=== PATIENT | female | born 1985 | race African-American/Black ===

== ENCOUNTER 2019-12-27 09:34 | Inpatient (IN) ==
[2019-12-27] MEDS ORDERED: ONDANSETRON 4 MG/2 ML VIAL IV PRN (10:03)
[2019-12-27] MEDS ORDERED: BUTORPHANOL 2 MG/ML VIAL IV PRN (10:03)
[2019-12-27] MEDS ORDERED: OXYTOCIN/LR 20 UNIT/1,000 ML BAG IV PRN (10:03)
[2019-12-27] MEDS ORDERED: BUTORPHANOL 1 MG/ML VIAL IV PRN (10:03)
[2019-12-27] MEDS ORDERED: FAMOTIDINE 20 MG/2 ML VIAL IV ONE (10:06)
[2019-12-27] MEDS ORDERED: ONDANSETRON 4 MG/2 ML VIAL IV ONE (10:06)
[2019-12-27] MEDS ORDERED: CITRIC ACID/SODIUM CITRATE 30 ML UDCUP PO ONE (10:06)
[2019-12-27] MEDS ORDERED: hydrOXYzine HCL 25 MG/1 ML VIAL IM PRN (10:06)
[2019-12-27] MEDS ORDERED: ePHEDrine 50 MG/ML VIAL IV PRN (10:06)
[2019-12-27] MEDS ORDERED: diphenhydrAMINE 50 MG/1 ML VIAL IV PRN ×2 (10:06)
[2019-12-27] MEDS ORDERED: PROMETHAZINE 25 MG/1 ML VIAL IM ONE (10:06)
[2019-12-27] MEDS ORDERED: NALOXONE 0.4 MG/ML VIAL IV PRN (10:06)
[2019-12-27] MEDS ORDERED: LACTATED RINGERS 1,000 ML IV ONE (10:06)
[2019-12-27 10:30] LABS: Basophils # 0.1 10*3/uL (0.0-0.2); Basophils % 0.3 % (0.0-0.8); Eosinophils # 0.1 10*3/uL (0.0-0.87); Eosinophils % 0.3 % (0.00-10.9); Hematocrit 29.8 VOL% (35.7-47.0); Hemoglobin 9.9 GM/DL (12.0-16.0); Immature Granulocytes % 1.9 %; Immature Granulocytes Absolute 0.29 #; Lymphocytes # 2.1 10*3/uL (1.4-4.0); Lymphocytes % 13.9 % (21.3-54.2); Mean Corpuscular HGB Conc 33.2 GM/DL (32-36); Mean Corpuscular Volume 84.9 FL (87-102); Mean Platelet Volume 9.1 FL (9.6-12.0); Monocytes % 6.7 % (1.7-12.7); NRBC # 0.04 10*3/uL; Neutrophils % 76.9 % (38.7-73.9); Platelet Count 650 T/CUMM (130-400); Red Blood Count 3.51 MC/CUMM (3.8-5.5); Red Cell Distribution Width 15.4 % (9.3-17.3); White Blood Count 15.2 T/CUMM (4-12)
[2019-12-27] MEDS ORDERED: LACTATED RINGERS 1,000 ML IV SCH (10:30)
[2019-12-27] MEDS ORDERED: fentaNYL 2 MCG/ROPIV 0.2% EPID 100 ML EPIDURAL SCH (10:30)
[2019-12-27] MEDS ORDERED: miSOPROStoL 200 MCG TABLET ONE ×2 (10:31→11:10)
[2019-12-27] MEDS ORDERED: CARBOPROST TROMETHAMINE 250 MCG/ML AMP IM ONE ×2 (10:32→11:11)
[2019-12-27] MEDS ORDERED: METHYLERGONOVINE 0.2 MG/1 ML AMP ONE ×2 (10:32→11:10)
[2019-12-27 10:57] LABS: Alanine Aminotransferase < 9 U/L (13-56); Albumin 2.1 G/DL (3.4-5.0); Alkaline Phosphatase 362 U/L (45-117); Aspartate Amino Transferase 23 U/L (0-37); Blood Urea Nitrogen 7 MG/DL (7-18); Calcium 9.4 MG/DL (8.5-10.1); Estimated Glom Filtration Rate 88 ML/MIN; Glucose 110 MG/DL (74-106); Osmolality,Calculated 262.5 MOS/KG (273-304); Total Protein 7.8 G/DL (6.4-8.3); Uric Acid 6.3 MG/DL (2.6-6.0)
[2019-12-27] MEDS ORDERED: OXYTOCIN/LR 0 UNIT/0 ML BAG IV ONE (11:10)
[2019-12-27] MEDS ORDERED: TRANEXAMIC ACID 1,000 MG/10 ML VIAL ONE (11:10)
[2019-12-27 11:11] LABS: Burr Cells Few; Hypochromasia 3+; Microcytosis 3+; Platelet Estimate Increased; Polychromasia Slight
[2019-12-27 13:02] LABS: Cord Arterial Blood HCO3 23.4 MMOL/L
[2019-12-27 13:04] LABS: Cord Venous Blood HCO3 23.8 MMOL/L; Cord Venous Blood PCO2 39.7 MMHG; Cord Venous Blood PO2 31.3 MMHG
[2019-12-27] MEDS ORDERED: LANOLIN 50% CREAM 0.3 OZ TUBE TOP PRN (14:28)
[2019-12-27] MEDS ORDERED: OXYTOCIN/LR 20 UNIT/1,000 ML BAG IV ONE (14:28)
[2019-12-27] MEDS ORDERED: ACETAMINOPHEN 325 MG TABLET PO PRN (14:28)
[2019-12-27] MEDS ORDERED: oxyCODONE/ACETAMINOPHEN 5-325 MG TABLET PO PRN ×2 (14:28)
[2019-12-27] MEDS ORDERED: BENZOCAINE 20%/MENTHOL 0.5% SPRAY 56 GM CAN TOP PRN (14:28)
[2019-12-27] MEDS ORDERED: BISACODYL 10 MG SUPP RECTAL PRN (14:28)
[2019-12-27] MEDS ORDERED: MEASLES/MUMPS/RUBELLA VACCINE 0.5 ML VIAL SUBCUT ONE (14:28)
[2019-12-27] MEDS ORDERED: DIPH/TET/ACEL PERT BOOSTER VACCINE 0.5 ML VIAL IM ONE (14:28)
[2019-12-27] MEDS ORDERED: HYDROCORTISONE 2.5% RECTAL CREAM 30 GM TUBE TOP PRN (14:28)
[2019-12-27] MEDS ORDERED: WITCH HAZEL PADS 100/JAR TOP PRN (14:28)
[2019-12-27] MEDS ORDERED: RHO(D) IMMUNE GLOBULIN 300 MCG SYRINGE IM ONE (14:28)
[2019-12-27] MEDS: DOCUSATE SODIUM 100 MG CAPSULE PO SCH (20:15)
[2019-12-27] MEDS: IBUPROFEN 800 MG TABLET PO PRN (20:16)
[2019-12-28 06:15] LABS: Basophils % 0.2 % (0.0-0.8); Eosinophils # 0.1 10*3/uL (0.0-0.87); Eosinophils % 0.9 % (0.00-10.9); Hematocrit 27.2 VOL% (35.7-47.0); Immature Granulocytes % 1.7 %; Immature Granulocytes Absolute 0.22 #; Lymphocytes # 2.4 10*3/uL (1.4-4.0); Lymphocytes % 18.4 % (21.3-54.2); Mean Corpuscular HGB Conc 33.1 GM/DL (32-36); Mean Corpuscular Volume 83.4 FL (87-102); Mean Platelet Volume 9.1 FL (9.6-12.0); Monocytes % 6.7 % (1.7-12.7); NRBC # 0.03 10*3/uL; Neutrophils % 72.1 % (38.7-73.9); Platelet Count 554 T/CUMM (130-400); Red Blood Count 3.26 MC/CUMM (3.8-5.5); Red Cell Distribution Width 15.3 % (9.3-17.3); White Blood Count 13.2 T/CUMM (4-12)
[2019-12-28] MEDS: IBUPROFEN 800 MG TABLET PO PRN ×2 (07:37→18:05)
[2019-12-28] MEDS: DOCUSATE SODIUM 100 MG CAPSULE PO SCH ×2 (07:38→18:46)
[2019-12-28] MEDS ORDERED: POLYETHYLENE GLYCOL POWDER 17 GM PACK PO PRN (21:04)
[2019-12-29] MEDS: DOCUSATE SODIUM 100 MG CAPSULE PO SCH (08:09)
== END 2019-12-29 11:20 | disposition home or self-care (01) | DRG 807 ==
LOC: N.LDOUT 09:34 → N.LD 09:37
PROVIDERS: ADMIT Obstetrics & Gynecology; ATTEND Obstetrics & Gynecology